=== PATIENT | male | born 1975 | race Caucasian/White ===

== ENCOUNTER 2024-12-14 09:30 | Day surgery (SDC) | payer OTHER, SELFPAY ==
[2024-12-06 15:58] VITALS: BMI 44.7
--- NOTE | 2024-12-12 13:59 | EXP.HP ---
History of Present Illness *Admission Date: 12/14/24 *History of present illness: Mr. Piña is a 49-year-old gentleman who is here for screening colonoscopy. The patient does have a prior history of rectal cancer diagnosed in 2001 (in [place]). He did have neoadjuvant chemoradiation followed by surgical resection. His last colonoscopy was in May 2013 ([facility]). The patient does state that his paternal grandmother had colon cancer in her 70s and his maternal great uncle had colon cancer also in his 70s. The patient does struggle with incomplete defecation/incomplete bowel evacuation with bloating. The examination is deemed medically necessary for screening/surveillance colonoscopy. The patient has been seen, interviewed and examined prior to the procedure by both myself and the anesthesia provider. [facility] Disclaimer: The information contained in this section may have been updated after the patient was seen, as this information can be updated by other users. Medical History Asthma MVP (mitral valve prolapse) Heart murmur History of rectal cancer Surgical History History of removal of cyst History of colon resection Family History Father Cancer Stroke Mother Stroke Cancer Social History (Updated 12/14/24 @ 10:08 by Alex Edmond CRNA) Smoking Status: Never smoker alcohol intake: current alcohol intake frequency: holidays/special occasions only substance use type: denies use current occupational status: employed Travel in the last 8 weeks?: Inside the [place] Have you lived/traveled outside US in past 30 days?: No Contact w/someone who lives/traveled outside US past 30 days?: No Exposure to someone with infectious disease in past 14 days?: No Do you have a fever (greater than 100.4 F or 38 C)?: No Have you tested positive for COVID-19?: No Exposed to someone with COVID-19 in past 14 days?: No Do you have a sore throat?: No Do you have a cough?: No Do you have any weakness?: No Are you experiencing any nausea/vomitting?: No Do you have any diarrhea?: No Are you experiencing any unusual bleeding?: No Do you have any muscle aches/pain?: No Do you have any abdominal pain?: No Are you experiencing loss of taste or smell?: No Review of Systems Review of Systems Review of systems (narrative): Negative *Cardiovascular Comments: Negative *Gastrointestinal Comments: Negative *Genitourinary Comments: Negative *Musculoskeletal Comments: Negative *Neurologic Comments: Negative Meds Home Medications and Allergies Home Medications ?Medication ?Instructions ?Recorded ?Confirmed ?Type ibuprofen 800 mg tablet 800 mg PO NEEDED PRN Pain 10/12/24 12/14/24 History sodium,potassium,mag sulfates 17.5 See Rx Instructions PO .COMPLEX 11/30/24 12/14/24 Rx gram-3.13 gram-1.6 gram oral soln #354 mL (Suprep Bowel Prep Kit) aspirin 81 mg tablet 81 mg PO DAILY 12/06/24 12/14/24 History atorvastatin 20 mg tablet 20 mg PO DAILY 12/06/24 12/14/24 History lisinopril 5 mg tablet 5 mg PO DAILY 12/06/24 12/14/24 History tirzepatide 5 mg/0.5 mL 5 mg SQ WEEKLY 12/06/24 12/14/24 History subcutaneous pen injector (Mounjaro) New Prescriptions to Start Prescriptions: Allergies Allergy/AdvReac Type Severity Reaction Status Date / Time No Known Allergies Allergy Verified 12/06/24 15:53 Exam *Routine HEENT Exam Head: Present normocephalic Eye: Present EOMI and PERRL ENT: Present mucous membranes moist *Routine Neck Exam Neck: Present supple *Routine Respiratory Exam Respiratory: Present CTA bilaterally *Routine Cardiovascular Exam Cardiovascular: Present RRR *Routine Abdominal Exam Abdominal: Present soft and normoactive bowel sounds; Absent tenderness *Routine Rectal Exam Rectal:: deferred *Routine Genitalia Exam Genitalia:: deferred *Routine Extremities Exam Extremities: Absent cyanosis, clubbing or edema *Routine Skin Exam Skin: Present warm; Absent rash *Routine Neurological Exam Neurological: Present alert and oriented X3 Assessment and Plan *Assessment and plan (1) History of rectal cancer: Problem Comment: 2001 Stage 3 Status: Acute Category: Medical Code(s): Z85.048 - Personal history of other malignant neoplasm of rectum, rectosigmoid junction, and anus (2) History of colon resection: Problem Comment: 2001 Status: Acute Category: Surgical Code(s): Z90.49 - Acquired absence of other specified parts of digestive tract (3) Incomplete defecation: Status: Acute Category: Medical Code(s): R15.0 - Incomplete defecation Plan A/P: 1. Personal history of rectal cancer is the preprocedural diagnosis. His last colonoscopy was in 2013 (11 years ago) and he also has a family history of colon cancer. The patient will be anesthetized/sedated using MAC sedation. The patient has been seen and examined. Cardiac and lung assessment prior to the examination is stable. Proceed with planned screening/surveillance colonoscopy.
[2024-12-14 09:47] VITALS: BP 173/93; PULSE 109; RESP 18; TEMP 36.1; O2SAT 97; BMI 44.7
[2024-12-14] MEDS: LACTATED RINGERS 1000ML 1,000 ML 50 ML IV (10:00)
[2024-12-14 10:06] LABS: POC Glucose,Bedside 133 gm/dL (70-110)
--- NOTE | 2024-12-14 10:08 | EXP.ANES.CKL ---
[facility] Disclaimer: The information contained in this section may have been updated after the patient was seen, as this information can be updated by other users. Medical History Asthma MVP (mitral valve prolapse) Heart murmur History of rectal cancer Surgical History History of removal of cyst History of colon resection Family History Father Cancer Stroke Mother Stroke Cancer Social History (Updated 12/14/24 @ 09:49 by Wanda Michel RN) Smoking Status: Never smoker alcohol intake: current alcohol intake frequency: holidays/special occasions only substance use type: denies use current occupational status: employed Travel in the last 8 weeks?: Inside the [facility] Anesthesia Checklist Patient Identification Patient Identification: Arm Band and Verbal (Name & ) Structural Data Admitted From: Home Planned Operative Procedure/s: colonoscopy Consent for Planned Operative Procedure(s) Verified: Yes Verified Documents: Surgical Consent NPO Status Verified Time NPO: 00:00 Additional verifications Fingerstick Blood Glucose: 133 Anesthesia Reactions: No Airway Assessment Mallampati Score:: Class III C-Spine Mobility Assessed: Yes TMJ Mobility Assessed: Yes Dentition: Good Dentition Neurological Assessment Level of Consciousness: Awake, Alert and Appropriate Hx Seizures: No Numbness or tingling in extremities: No Anesthesia Plan Anesthesia Risk discussed: Yes Anesthesia Plan: Verified ASA Class: III Anesthesia Type: MAC
--- NOTE | 2024-12-14 10:10 | P.PCN_ITS ---
[facility] Procedure Note Date: 12/14/24 Time: 10:42 Procedure Note:: Sigmoidoscopy procedure Report: Sigmoidoscopy with TTS balloon dilation Endoscopist: Reynold Nicholas II, MD Referring physician: Elfego Godoy MD Date of Procedure: December 14, 2024 Equipment: Olympus [id number] adult colonoscope Sedation: MAC sedation Indication: Mr. Piña is a 49-year-old gentleman who is here for screening colonoscopy. The patient does have a prior history of rectal cancer diagnosed in 2001 (in [place]). He did have neoadjuvant chemoradiation followed by surgical resection. His last colonoscopy was in May 2013 ([facility]). The patient does state that his paternal grandmother had colon cancer in her 70s and his maternal great uncle had colon cancer also in his 70s. The patient does struggle with incomplete defecation/incomplete bowel evacuation with bloating. The patient reports small caliber bowel movements since the surgery. He does get some intermittent rectal bleeding with ibuprofen or larger bowel movements. He has no hemorrhoidal prolapse. The examination is deemed medically necessary for screening/surveillance colonoscopy. Procedure: Prior to the procedure, a history and physical exam was performed, and patient's medications and allergies were reviewed. The risks, benefits and alternatives of the sedation and procedure were discussed with the patient. All questions were answered and informed consent was obtained. The patient was brought to the procedure room. Patient identification and proposed procedure were verified by the physician and the nurse. The patient was placed in a left lateral decubitus position and the scope was passed under direct vision. Throughout the procedure, the patient's blood pressure, pulse, and oxygen saturations were monitored continuously. The colonoscopy was accomplished without difficulty. The patient tolerated the procedure well. Findings: On digital rectal examination, there was some anorectal deformity from prior surgery but still normal rectal tone. The rectal vault was very small and there was heme identified oozing from the rectum even prior to the introduction of the scope. The scope was then inserted through the anal canal into the rectum. 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 Upon further advancement, there was an anastomotic stricture from the colorectal anastomosis. The colonoscope could not be advanced through this anastomotic stricture. Next, the upper endoscope was inserted through the anal canal and advanced through this stricture that was originally 7-8 mm diameter. The scope was advanced approximately 20 cm into the colon but there was solid brown stool and brown liquid stool and preparation was very poor. Upon withdrawal, the stricture was encountered again and this was dilated with a wire-guided TTS hydrostatic balloon up to 13.5 mm. Because of movement of stool into the rectum, I did not do APC on the radiation proctitis. Impression: 1. Anastomotic colorectal stricture (originally 7 to 8 mm and dilated up to 13.5 mm) 2. Radiation proctitis 3. Unprepped colonoscopy Plan: There was moderate rectal vault deformity with radiation proctitis and the colorectal stricture. I would consider discussion with the patient upon seeing colorectal surgery and possibly at some point needing revision surgery. I do feel that this will make it very difficult for him to prep for screening colonoscopy and we will discuss this.
[2024-12-14 10:41] VITALS: BP 146/91; PULSE 83; RESP 18; TEMP 36.6; O2SAT 96
[2024-12-14 10:51] VITALS: BP 128/68; PULSE 90; RESP 18; TEMP 36.6; O2SAT 97
[2024-12-14 11:01] VITALS: BP 117/62; PULSE 98; RESP 18; TEMP 36.6; O2SAT 96
[2024-12-14 11:11] VITALS: BP 119/78; PULSE 91; RESP 18; TEMP 36.6; O2SAT 97
== END 2024-12-14 11:20 | disposition home or self-care (01) ==
PROVIDERS: PCP Emergency Medicine; Visit Provider Internal Medicine Gastroenterology
PROC: 0DJD8ZZ Inspection of Lower Intestinal Tract, Via Natural or Artificial Opening Endoscopic (ICD-10-PCS; CPT 45378; principal; 2024-12-14 11:00)
DX: Z12.11 Encounter for screening for malignant neoplasm of colon (principal); K62.7 Radiation proctitis; K56.699 Other intestinal obstruction unspecified as to partial versus complete obstruction; Z85.048 Personal history of other malignant neoplasm of rectum, rectosigmoid junction, and anus; Z80.0 Family history of malignant neoplasm of digestive organs; Z90.49 Acquired absence of other specified parts of digestive tract
CPT/HCPCS: 45340; 82962; C1726; J2003; J2704; J7120